=== PATIENT | male | born 1965 | race Caucasian/White ===

== ENCOUNTER 2022-06-10 13:31 | Emergency (ER) | payer BC, SELFPAY ==
[2022-06-10 13:53] VITALS: BP 156/91; PULSE 93; RESP 14; TEMP 36.8; O2SAT 98
--- NOTE | 2022-06-10 15:30 | ED_ITS ---
HPI - General Adult General Chief complaint: Laceration/Wound Stated complaint: Puncture wound to Thigh Time Seen by Provider: 06/10/22 14:47 Source: patient Mode of arrival: ambulatory Limitations: no limitations History of Present Illness HPI narrative: [age] year male coming in today with a laceration to the back of the left thigh. Patient was [employer] when he backed up into a broken broom handle, the handle impaled the back of his leg. Denies any other injury. Related Data Home Medications Medication Instructions Recorded Confirmed atorvastatin 20 mg tablet mg 06/10/22 lisinopril 10 mg tablet mg 06/10/22 lisinopril 20 tab 06/10/22 mg-hydrochlorothiazide 25 mg tablet Previous Rx's Medication Instructions Recorded cephalexin 500 mg capsule 500 mg PO TID 7 days #21 caps 06/10/22 Allergies Allergy/AdvReac Type Severity Reaction Status Date / Time Penicillins Allergy Verified 06/10/22 13:52 Review of Systems Status of ROS: Reports: 6 or more systems reviewed and unremarkable except as noted in History and below Exam Narrative: Exam Narrative: Well-nourished well-developed patient in no acute distress. Alert and oriented. Answers questions appropriately. Mood and affect are appropriate. Extremities: Bilateral lower extremities are without edema. In the back of the patient's left thigh he does have approximately a 1 cm puncture wound. The wound penetrates through the epidermis, through the dermis and into the subcutaneous tissue. Does not penetrate through the subcutaneous tissue. Skin: Well perfused without any obvious rashes. Const: Vital Signs, click to edit/add: Vital Signs - 24 hr 06/10/22 13:53 Temperature 98.3 F Pulse Rate [Right Pulse Oximeter] 93 Respiratory Rate 14 Blood Pressure [Ri ght Upper Arm] 156/91 H Pulse Oximetry 98 Oxygen Delivery Me thod Room Air Course Course Hospital Course: Anesthesia provided with lidocaine with epinephrine. Wound was irrigated and explored, properly cleaned. For stitches with 3-0 Ethilon were placed without difficulty. Vital Signs Vital signs: Initial Vital Signs Temperature 98.3 F 06/10/22 13:53 Temperature Source Temporal Artery Scan 06/10/22 13:53 Pulse Rate 93 06/10/22 13:53 Respiratory Rate 14 06/10/22 13:53 Blood Pressure 156/91 H 06/10/22 13:53 Blood Pressure Mean 112 06/10/22 13:53 Blood Pressure Position Sitting 06/10/22 13:53 Pulse Oximetry 98 06/10/22 13:53 Oxygen Delivery Method 06/10/22 13:53 Vital Signs Temperature 98.3 F 06/10/22 13:53 Pulse Rate 93 06/10/22 13:53 Respiratory Rate 14 06/10/22 13:53 Blood Pressure 156/91 H 06/10/22 13:53 Pulse Oximetry 98 06/10/22 13:53 Oxygen Delivery Method 06/10/22 13:53 Temperature 98.3 F 06/10/22 13:53 Pulse Rate 93 06/10/22 13:53 Respiratory Rate 14 06/10/22 13:53 Blood Pressure 156/91 H 06/10/22 13:53 Pulse Oximetry 98 06/10/22 13:53 Oxygen Delivery Method 06/10/22 13:53 Medical Decision Making MDM Narrative Medical decision making narrative: 56-year-old male with a wound to the back of the thigh clean and sutured per above. We discussed wound hygiene, signs and symptoms of infections, reasons to return to the ED, and suture removal in 7-10 days. I will send home with a pres cription for Keflex in the event area becomes infected. Lastly we did go ahead and update his tetanus shot today. Medical Records Medical records reviewed: Yes I reviewed the patient's medical records Discharge Plan Discharge Clinical Impression: Laceration Patient Disposition: Home, Self-Care Condition: Improved Additional Instructions: Keep wound clean and dry. Okay to shower like he normally would but do not soak such as taking a bath. Keep it covered with a Band-Aid on a daily basis to avoid irritation. Watch for signs of infection which include redness or purulent drainage from the wound. If this occurs, go ahead and start your a ntibiotic. Sutures need to be removed by her primary care provider in approximately 7-10 days. Prescriptions: New cephalexin 500 mg capsule 500 mg PO TID 7 Days Qty: 21 0RF No Action atorvastatin 20 mg tablet Label Comments: TAKE ONE TABLET BY MOUTH AT BEDTIME lisinopril 10 mg tablet Label Comments: TAKE ONE TABLET BY MOUTH EVERY DAY lisinopril-hydrochlorothiazide 20-25 mg tablet Label Comments: TAKE ONE TABLET BY MOUTH EVERY DAY Follow Up/Referrals: Rod Roper MD [Primary Care Provider] - Stand Alone Forms: [employer] Info Instructions
[2022-06-10] MEDS: TETANUS/DIPHTH/PERTUSSIS 0.5 ML SYRINGE IM (15:42)
--- NOTE | 2022-06-10 15:54 | ED.NURSE ---
cleaned the wound with [employer] vacuum cleaner repairer and applied bactrican, telfa, 4x4s, and wrapped with kerlex and coban.
== END 2022-06-10 16:02 | disposition home or self-care (01) ==
PROVIDERS: Emergency Provider Family Medicine; PCP Family Medicine
DX: S71.112A Laceration without foreign body, left thigh, initial encounter (principal); W26.9XXA Contact with unspecified sharp object(s), initial encounter
CPT/HCPCS: 12001; 90471; 90715; 99283; 99284